=== PATIENT | female | born 1970 | race African-American/Black ===

== ENCOUNTER 2020-03-01 08:40 | Emergency (ER) | payer MEDICARE, OTHER ==
[2020-03-01 08:47] VITALS: PULSE 102; RESP 20
[2020-03-01] MEDS ORDERED: HYDROcodone/APAP 5-325MG 1 EACH TAB PO STA ×2 (09:18→10:58)
[2020-03-01] MEDS ORDERED: IBUPROFEN 600 MG TAB PO STA (09:18)
--- NOTE | 2020-03-01 09:43 | ED ---
General Adult HPI - General Chief complaint: Recheck/Abnormal Lab/Rx Stated complaint: hemorrhage Time Seen by Provider: 03/01/20 08:44 Source: EMS, RN notes reviewed, old records reviewed Mode of arrival: EMS Limitations: no limitations - History of Present Illness Initial comments: Patient is a 49-year-old female who presents emergency Department via EMS. She resides in [place], and states that she is able to do her own dialysis over her right arm graft. She is currently staying in [facility] with her daughter for the past few months. She reports that today when she attempted to access her fistuala a she started noticed severe bleeding and hemorrhage from her AV fistula. Patient reports that she has a vascular surgeon in [place]. She is here today via EMS. EMS noted a low-grade temperature of 99 and Patient has a fever of 100.1 in the emergency department. She does report a history of chronic smoker's cough. Patient states that she also is out of her chronic pain medication and plans of chronic back and hip pain. She states that she's been out of her [place] for one week. She reports that she has no exposure to cope with contacts. - Related Data Allergies Allergy/AdvReac Type Severity Reaction Status Date / Time iodine Allergy Cough Verified 03/01/20 08:48 Penicillins Allergy Rash/Hives Verified 03/01/20 08:47 Review of Systems ROS Statement: Those systems with pertinent positive or pertinent negative responses have been documented in the HPI. ROS Other: All systems not noted in ROS Statement are negative. 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 Alert and oriented. Limitations: no limitations General appearance: alert, in no apparent distress Head exam: Present: atraumatic, normocephalic, normal inspection Eye exam: Present: normal appearance, PERRL, EOMI. Absent: scleral icterus, conjunctival injection, periorbital swelling ENT exam: Present: normal exam, mucous membranes moist Neck exam: Present: normal inspection. Absent: tenderness, meningismus, lymphadenopathy Respiratory exam: Present: normal lung sounds bilaterally. Absent: respiratory distress, wheezes, rales, rhonchi, stridor Cardiovascular Exam: Present: regular rate, normal rhythm, normal heart sounds. Absent: systolic murmur, diastolic murmur, rubs, gallop, clicks GI/Abdominal exam: Present: soft, normal bowel sounds. Absent: distended, tenderness, guarding, rebound, rigid Extremities exam: Present: normal inspection, full ROM, normal capillary refill, other (Patient has evidence of open wound over her AV fistula. It is now clotted off, with no further bleeding. palpable cord distal to the wound. Patient reports pus came out of the site as well. ). Absent: tenderness, pedal edema, joint swelling, calf tenderness Back exam: Present: normal inspection Neurological exam: Present: alert, oriented X3, CN II-XII intact Psychiatric exam: Present: normal affect, normal mood Skin exam: Present: warm, dry, intact, normal color. Absent: rash Course Vital Signs 03/01/20 03/01/20 08:43 09:44 Temperature 101.1 F H 100.1 F H Pulse Rate 102 H 102 H Respiratory 20 20 Rate Blood Pressure 140/93 139/88 O2 Sat by Pulse 98 97 Oximetry Medical Decision Making - Medical Decision Making 49-year-old female on dialysis who max assist her fistula site of her right arm noticed it was bleeding today has an open wound. She also reported some pus from the wound. She rides emergency Department via EMS and is found to have a low-grade temperature 100.1. She also complained of a chronic smoker's cough. At this time Patient was quite aggravated that she is seen in the emergency department and she had a libertarian attempted to contact her surgeon in [place] for her fistula graft. Patient was informed that with the concern for "crisis a cough and fever here we would want to further testing and blood work. Her she is continuing to refuse this. Her fistula site has stopped bleeding at this time but does have an evidence of an open ulceration at the [place] flight. Patient called family and they will be picking her up and going to the office in [place]. Patient understands that she will be leaving AGAINST MEDICAL ADVICE as I do prefer to do further testing the low-grade fever and patient's complaint of ulceration and pus from her fistula site. Patient agrees to these risks and is willing to sign AGAINST MEDICAL ADVICE. Disposition Clinical Impression: Hemorrhage of arteriovenous fistula, Fever, Dialysis AV fistula malfunction Disposition: Left Against Medical Advice Condition: Stable Is patient prescribed a controlled substance at d/c from ED?: No Referrals: None,Stated [Primary Care Provider] - 1-2 days Time of Disposition: 09:51
[2020-03-01 09:55] VITALS: BP 139/88; TEMP 100.1
--- NOTE | 2020-03-01 10:36 | ED ---
General Adult HPI - General Chief complaint: Recheck/Abnormal Lab/Rx Stated complaint: hemorrhage Time Seen by Provider: 03/01/20 08:44 Source: EMS, RN notes reviewed, old records reviewed Mode of arrival: EMS Limitations: no limitations - History of Present Illness Initial comments: Patient is a 49-year-old female who presents emergency department for initial complaint of hemorrhage from AV fistula site and noted pus from this. Patient states that she does self dialyze from the site and did so 2 [id number]. She had a ulceration over the fistula site and clot over this at this time. She'll see him on some pus from the area. When she arrived to the emergency department initially she had a fever of 101. Patient was refusing to be evaluated for the fever and only wanted to see vascular surgery. Typically her vascular surgeon is in [place]. When she was initially in the emergency department she called her vascular surgeon and stated she wanted to leave AGAINST MEDICAL ADVICE, and go to their office and have no labs for the fever and was refusing Covid Swab. She agreed to leave AGAINST MEDICAL ADVICE and accepted these risks. When patient's daughter arrives to emergency Department her daughter became upset and stated that she should be seen in any emergency room for vascular complaint. I discussed with the Patient and patient's family that vascular surgeon is not waiting in the emergency room to see the patient at this time, but she needs further workup for the fever first. Are now agreeable to be evaluated for further workup in regards to the fever. - Related Data Home Medications Medication Instructions Recorded Confirmed B Complex W-C No.20/Folic Acid 1 mg PO DAILY 03/01/20 03/01/20 [Renal Caps Softgel] Biotin 1mg 1 tab PO DAILY 03/01/20 03/01/20 Calcitriol [Rocaltrol] 0.5 mcg PO DAILY 03/01/20 03/01/20 Cyanocobalamin (Vitamin B-12) 1,000 mcg PO DAILY 03/01/20 03/01/20 [Vitamin B-12] Docusate [Colace] 100 mg PO BID PRN 03/01/20 03/01/20 HYDROcodone/APAP 7.5-325MG [Ava 1 tab PO BID 03/01/20 03/01/20 7.5-325] Sevelamer HCl [Renagel] 1,600 mg PO QID 03/01/20 03/01/20 Allergies Allergy/AdvReac Type Severity Reaction Status Date / Time iodine Allergy Cough Verified 03/01/20 10:42 Penicillins Allergy Rash/Hives Verified 03/01/20 10:42 aspirin AdvReac Nausea & Verified 03/01/20 11:44 Vomiting Review of Systems ROS Statement: Those systems with pertinent positive or pertinent negative responses have been documented in the HPI. ROS Other: All systems not noted in ROS Statement are negative. 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 Irrate and uncooperative. Limitations: no limitations General appearance: alert, in no apparent distress Head exam: Present: atraumatic, normocephalic, normal inspection Eye exam: Present: normal appearance, PERRL, EOMI. Absent: scleral icterus, conjunctival injection, periorbital swelling ENT exam: Present: normal exam, mucous membranes moist Neck exam: Present: normal inspection. Absent: tenderness, meningismus, lymphadenopathy Respiratory exam: Present: decreased breath sounds. Absent: normal lung sounds bilaterally, respiratory distress, wheezes, rales, rhonchi, stridor Cardiovascular Exam: Present: regular rate, normal rhythm, normal heart sounds. Absent: systolic murmur, diastolic murmur, rubs, gallop, clicks GI/Abdominal exam: Present: soft, normal bowel sounds. Absent: distended, tenderness, guarding, rebound, rigid Extremities exam: Present: normal inspection, full ROM, normal capillary refill, other (patient has skin contusion over 2cm graft, no bleeding noted. Patient has no drainage. ). Absent: tenderness, pedal edema, joint swelling, calf tenderness Back exam: Present: normal inspection, full ROM Neurological exam: Present: alert, oriented X3, CN II-XII intact Psychiatric exam: Present: normal affect, normal mood Skin exam: Present: warm, dry, intact, normal color. Absent: rash Course Vital Signs 03/01/20 03/01/20 08:43 09:44 Temperature 101.1 F H 100.1 F H Pulse Rate 102 H 102 H Respiratory 20 20 Rate Blood Pressure 140/93 139/88 O2 Sat by Pulse 98 97 Oximetry - Reevaluation(s) Reevaluation #1: 03/01/20 12:46 Patient has been unccoperate with blood draw and with IV start. Called staff "Analiliavanessa Bitch" Reevaluation #2: 03/01/20 12:[address] Brennan whom was there to examine patient and patient refuses to stay in for admission. EKG Findings - EKG Comments: EKG Findings:: EKG performed at 1105 shows normal sinus rhythm abnormal EKG. Ventricular rate of 90 beats were minute. CA interval is 156 ms. QRS duration is 70 ms. QT QTc is 352/449 ms. Medical Decision Making - Medical Decision Making Patient's 49-year-old female presents emergency department today for bleeding AV fistula site. When she arrived to the bleeding is well-controlled and stopped at this time. Patient has hyper focused on the AV fistual official site demanding to see vascular surgeon right away. I discussed that with concern for fever Patient should have further evaluation and blood work completed. She did mention in passing that she's had a cough but relates is chronic. 1 view chest x-ray shows evidence of pneumonia. Patient was informed that she become increasingly irate and was refusing to stay in the hospital for admission for pneumonia with a consult to vascular surgery in regards to her AV fistula site wound. Patient's case was discussed with Dr. Brennan also went into the room to give discussed with the Patient to stay in the hospital with consults vascular surgery. Patient was in the room with her daughter and she continues to refuse to stay in the hospital this time and does not believe she has pneumonia and wants to only be treated for vascular wound. Patient became quite irate, yelling at staff and calling staff names. Patient will be leaving with her daug hter at this time in stable condition. I did discuss with the Patient though that we would like to admit for concern for abnormal labs, needing to see vascular surgeon and have dialysis. She understands the risk of and not having all the lab reports back at this time. Patient will be leaving AGAINST MEDICAL ADVICE accept these risks. - Lab Data Result diagrams: 03/01/20 11:35 03/01/20 11:35 Lab Results 03/01/20 03/01/2003/01/20 Range/Units 11:35 11:35 11:35 WBC 3.9 (3.8-10.6) k/uL RBC 2.64 L (3.80-5.40) m/uL Hgb 7.8 L (11.4-16.0) gm/dL Hct 24.7 L (34.0-46.0) % MCV 93.7 (80.0-100.0) fL MCH 29.4 (25.0-35.0) pg MCHC 31.4 (31.0-37.0) g/dL RDW 14.5 (11.5-15.5) % Plt Count 157 (150-450) k/uL Neutrophils % 78 % Lymphocytes % 12 % Monocytes % 7 % Eosinophils % 0 % Basophils % 0 % Neutrophils # 3.1 (1.3-7.7) k/uL Lymphocytes # 0.5 L (1.0-4.8) k/uL Monocytes # 0.3 (0-1.0) k/uL Eosinophils # 0.0 (0-0.7) k/uL Basophils # 0.0 (0-0.2) k/uL PT 9.9 (9.0-12.0) sec INR 0.9 (<1.2) APTT 29.1 (22.0-30.0) sec D-Dimer 1.85 H (<0.60) mg/L FEU Sodium 135 L (137-145) mmol/L Potassium 4.6 (3.5-5.1) mmol/L Chloride 97 L (98-107) mmol/L Carbon Dioxide 28 (22-30) mmol/L Anion Gap 10 mmol/L BUN 51 H (7-17) mg/dL Creatinine 10.28 H* (0.52-1.04) mg/dL Est GFR (CKD-EPI)AfAm 5 (>60 ml/min/1.73 sqM) Est GFR (CKD-EPI)NonAf 4 (>60 ml/min/1.73 sqM) Glucose 106 H (74-99) mg/dL Plasma Lactic Acid Aguila (0.7-2.0) mmol/L Calcium 8.0 L (8.4-10.2) mg/dL Magnesium 2.7 H (1.6-2.3) mg/dL Total Bilirubin 0.4 (0.2-1.3) mg/dL AST 33 (14-36) U/L ALT 27 (4-34) U/L Alkaline Phosphatase 75 (38-126) U/L Lactate Dehydrogenase 403 (313-618) U/L C-Reactive Protein 18.6 H (<10.0) mg/L Total Protein 7.2 (6.3-8.2) g/dL Albumin 3.9 (3.5-5.0) g/dL 03/01/20 Range/Units 11:35 WBC (3.8-10.6) k/uL RBC (3.80-5.40) m/uL Hgb (11.4-16.0) gm/dL Hct (34.0-46.0) % MCV (80.0-100.0) fL MCH (25.0-35.0) pg MCHC (31.0-37.0) g/dL RDW (11.5-15.5) % Plt Count (150-450) k/uL Neutrophils % % Lymphocytes % % Monocytes % % Eosinophils % % Basophils % % Neutrophils # (1.3-7.7) k/uL Lymphocytes # (1.0-4.8) k/uL Monocytes # (0-1.0) k/uL Eosinophils # (0-0.7) k/uL Basophils # (0-0.2) k/uL PT (9.0-12.0) sec INR (<1.2) APTT (22.0-30.0) sec D-Dimer (<0.60) mg/L FEU Sodium (137-145) mmol/L Potassium (3.5-5.1) mmol/L Chloride (98-107) mmol/L Carbon Dioxide (22-30) mmol/L Anion Gap mmol/L BUN (7-17) mg/dL Creatinine (0.52-1.04) mg/dL Est GFR (CKD-EPI)AfAm (>60 ml/min/1.73 sqM) Est GFR (CKD-EPI)NonAf (>60 ml/min/1.73 sqM) Glucose (74-99) mg/dL Plasma Lactic Acid Aguila 0.9 (0.7-2.0) mmol/L Calcium (8.4-10.2) mg/dL Magnesium (1.6-2.3) mg/dL Total Bilirubin (0.2-1.3) mg/dL AST (14-36) U/L ALT (4-34) U/L Alkaline Phosphatase (38-126) U/L Lactate Dehydrogenase (313-618) U/L C-Reactive Protein (<10.0) mg/L Total Protein (6.3-8.2) g/dL Albumin (3.5-5.0) g/dL - Radiology Data Radiology results: report reviewed Patchy perihilar and right basilar infiltrate. Correlating for pneumonia. Disposition Clinical Impression: Hemorrhage of arteriovenous fistula, Fever, Dialysis AV fistula malfunction Disposition: Left Against Medical Advice Condition: Stable Referrals: None,Stated [Primary Care Provider] - 1-2 days
--- NOTE | 2020-03-01 11:19 | XR ---
EXAMINATION TYPE: XR chest 1V DATE OF EXAM: 03/01/2020 HISTORY: Shortness of breath. COMPARISON: None. TECHNIQUE: Single view of the chest is submitted. FINDINGS: Demonstrated are scattered senescent parenchymal change. Patchy perihilar and right basilar infiltrate. Correlate for pneumonia. The heart is enlarged. Hilar and mediastinal structures are within normal limits. Degenerative changes are seen of the dorsal spine. IMPRESSION: 1. Patchy perihilar and right basilar infiltrate. Correlate for pneumonia.
[2020-03-01 11:51] LABS: Basophils % (A) 0 %; Eosinophils % (A) 0 %; HCT 24.7 % (34.0-46.0); HGB 7.8 gm/dL (11.4-16.0); Lymphocytes # (A) 0.5 k/uL (1.0-4.8); Lymphocytes % (A) 12 %; MCH 29.4 pg (25.0-35.0); MCHC 31.4 g/dL (31.0-37.0); MCV 93.7 fL (80.0-100.0); Mean Platelet Volume 8.7; Monocytes # (A) 0.3 k/uL (0-1.0); Monocytes % (A) 7 %; Neutrophils # (A) 3.1 k/uL (1.3-7.7); Neutrophils % (A) 78 %; Platelet Count 157 k/uL (150-450); RBC 2.64 m/uL (3.80-5.40); RDW 14.5 % (11.5-15.5); WBC 3.9 k/uL (3.8-10.6)
[2020-03-01] MEDS ORDERED: cefTRIAXone IN SWFI 1,000 MG/10 ML SYRINGE IVP STA (11:53)
[2020-03-01] MEDS ORDERED: AZITHROMYCIN 500 MG TAB PO STA (11:54)
[2020-03-01 12:02] LABS: INR 0.9 (<1.2); Partial Thromboplastin Time 29.1 sec (22.0-30.0); Prothrombin Time 9.9 sec (9.0-12.0)
[2020-03-01 12:13] LABS: Albumin 3.9 g/dL (3.5-5.0); C Reactive Protein 18.6 mg/L (<10.0); Magnesium 2.7 mg/dL (1.6-2.3); Potassium 4.6 mmol/L (3.5-5.1); Total Bilirubin 0.4 mg/dL (0.2-1.3); Total Protein 7.2 g/dL (6.3-8.2)
[2020-03-01 12:18] LABS: D-Dimer 1.85 mg/L FEU (<0.60)
== END 2020-03-01 12:33 | disposition left against medical advice (07) ==
LOC: EC 08:40
DX: Z03.818 Encounter for observation for suspected exposure to other biological agents ruled out (principal); T82.838A Hemorrhage due to vascular prosthetic devices, implants and grafts, initial encounter; R50.9 Fever, unspecified; N18.6 End stage renal disease; F17.200 Nicotine dependence, unspecified, uncomplicated; J41.0 Simple chronic bronchitis; Z99.2 Dependence on renal dialysis; Z79.899 Other long term (current) drug therapy; Z88.0 Allergy status to penicillin; Z91.048 Other nonmedicinal substance allergy status
CPT/HCPCS: 36415; 71045; 80053; 82728; 83605; 83615; 83735; 84145; 85025; 85379; 85610; 85730; 86140; 87040; 87635; 93005; 99285

== ENCOUNTER → 2021-09-19 | Outpatient (CLI) | payer MEDICARE, BC ==
[2021-09-19 14:39] LABS: INR 0.9 (<1.2); Partial Thromboplastin Time 29.2 sec (22.0-30.0); Prothrombin Time 10.2 sec (9.0-12.0)
[2021-09-19 17:56] LABS: Basophils # (A) 0.02 X 10*3/uL (0.00-0.10); Basophils % (A) 0.5 %; Eosinophils # (A) 0.13 X 10*3/uL (0.04-0.35); Eosinophils % (A) 3.4 %; HCT 28.4 % (37.2-46.3); HGB 8.6 g/dL (12.0-15.0); Lymphocytes # (A) 1.04 X 10*3/uL (0.90-5.00); Lymphocytes % (A) 27.4 %; MCH 31.6 pg (27.0-32.0); MCHC 30.3 g/dL (32.0-37.0); MCV 104.4 fL (80.0-97.0); Mean Platelet Volume 10.2 fL (9.5-12.2); Monocytes # (A) 0.33 X 10*3/uL (0.20-1.00); Monocytes % (A) 8.7 %; Neutrophils # (A) 2.27 X 10*3/uL (1.80-7.70); Neutrophils % (A) 59.7 %; Platelet Count 182 X 10*3/uL (140-440); RBC 2.72 X 10*6/uL (4.10-5.20); RDW 15.3 % (11.5-14.5)
[2021-09-19 20:39] LABS: GGT 10 U/L (0-38); LDH 226 U/L (120-246)
[2021-09-19 20:49] LABS: Hepatitis B Core IgM Nonreactive (Nonreactive); Hepatitis B Surface AB- Quant 4.2 mIU/mL; Hepatitis B Surface Antibody Nonreactive (Nonreactive); Hepatitis B Surface Antigen Nonreactive (Nonreactive); Hepatitis C IgG Antibody Nonreactive (Nonreactive)
[2021-09-19 21:03] LABS: HIV 2 AB Non-Reactive (Non-Reactive); HIV AB P24 Non-Reactive (Non-Reactive); HIV P24 AG Non-Reactive (Non-Reactive)
[2021-09-19 21:43] LABS: ALT 19 U/L (8-44); AST 24 U/L (13-35); African American GFR (CKD) 4.6 (60.0-200.0); Albumin 4.1 g/dL (3.8-4.9); Albumin/Globulin Ratio 1.27 (1.60-3.17); Alkaline Phosphatase 85 U/L (41-126); BUN/Creat Ratio 3.26 Ratio (12.00-20.00); Bilirubin, Conjugated <0.20 mg/dL (0.20-0.40); Blood Urea Nitrogen 32.3 mg/dL (9.0-27.0); Calcium 8.4 mg/dL (8.7-10.3); Carbon Dioxide 25.3 mmol/L (20.0-27.5); Chloride 99 mmol/L (96-109); Globulin 3.2 g/dL (1.6-3.3); Glucose 122 mg/dL (70-110); Potassium 4.9 mmol/L (3.5-5.5); Sodium 145 mmol/L (135-145); Total Protein 7.3 g/dL (6.2-8.2)
[2021-09-20 06:01] LABS: EBV - VCA (IgG) >750.0 U/mL (<18.0); EBV - VCA IgM 32.9 U/mL (<36.0)
== END | disposition home or self-care (01) ==
LOC: LABWHC1 12:44
PROVIDERS: ATTEND Surgery
DX: Z01.810 Encounter for preprocedural cardiovascular examination (principal); Z13.6 Encounter for screening for cardiovascular disorders; N18.4 Chronic kidney disease, stage 4 (severe); Z76.82 Awaiting organ transplant status
CPT/HCPCS: 36415; 80053; 82977; 83036; 83615; 85025; 85610; 85730; 86644; 86665; 86704; 86705; 86706; 86780; 86803; 86900; 86901; 87340; 87390; 87522; 93005

== ENCOUNTER → 2021-09-19 | Outpatient (CLI) | payer MEDICARE, BC ==
--- NOTE | 2021-09-19 17:50 | ECHOF ---
Referral Reason:Z01.810 preoperative cardiac evaluation MEASUREMENTS -------- HEIGHT: 147.3 cm WEIGHT: 47.2 kg BP: RVIDd: 3.2 cm (< 3.3) IVSd: 1.5 cm (0.6 - 1.1) LVIDd: 2.7 cm (3.9 - 5.3) LVPWd: 1.5 cm (0.6 - 1.1) IVSs: 1.8 cm LVIDs: 1.5 cm LVPWs: 1.2 cm LAESV Index (A-L): 28.72 ml/m Ao Diam: 3.8 cm (2.0 - 3.7) AV Cusp: 2.4 cm (1.5 - 2.6) MV EXCURSION: 16.396 mm (> 18.000) MV EF SLOPE: 62 mm/s (70 - 150) EPSS: 0.5 cm MV E Andrew: 1.16 m/s MV DecT: 225 ms MV A Andrew: 1.24 m/s MV E/A Ratio: 0.93 AR PHT: 485 ms RAP: 5.00 mmHg RVSP: 83.98 mmHg FINDINGS -------- Sinus rhythm. This was a technically adequate study. The left ventricular size is normal. There is moderate concentric left ventricular hypertrophy. O verall left ventricular systolic function is normal with, an EF between 55 - 60 %. The right ventricle is normal in size. Normal LA size by volume 22+/-6 ml/m2. The right atrial size is normal. Interatrial and interventricular septum intact. The aortic valve is trileaflet and appears structurally normal. There is mild aortic regurgitation. There is no evidence of aortic stenosis. Mild mitral regurgitation is present. Moderate to severe tricuspid regurgitation present. There is moderate to severe pulmonary hypertens ion. The right ventricular systolic pressure, as measured by Doppler, is 83.98mmHg. RVSP may be ove restimated, consider Rt heart Cath There is no pulmonic regurgitation present. The aortic root size is normal. IVC Not well visulized. There is no pericardial effusion. CONCLUSIONS -------- 1. The left ventricular size is normal. 2. There is moderate concentric left ventricular hypertrophy. 3. Overall left ventricular systolic function is normal with, an EF between 55 - 60 %. 4. There is mild aortic regurgitation. 5. Mild mitral regurgitation is present. 6. Moderate to severe tricuspid regurgitation present. 7. There is moderate to severe pulmonary hypertension. 8. The right ventricular systolic pressure, as measured by Doppler, is 83.98mmHg. Overestimated RVSP. Consider RT heart Cath, MEDICAL PRACTICE MANAGER: Eunice Gamez RDCS
== END | disposition home or self-care (01) ==
LOC: RADECHMAIN 11:40
PROVIDERS: ATTEND Surgery
DX: Z13.6 Encounter for screening for cardiovascular disorders (principal); Z01.810 Encounter for preprocedural cardiovascular examination; N18.4 Chronic kidney disease, stage 4 (severe); Z76.82 Awaiting organ transplant status
CPT/HCPCS: 93306

== ENCOUNTER → 2021-09-27 | Outpatient (CLI) | payer MEDICARE ==
--- NOTE | 2021-09-27 08:16 | MM ---
Reason for exam: screening (asymptomatic). History: Patient is postmenopausal. Family history of breast cancer in mother at age 40. Physical Findings: A clinical breast exam by your physician is recommended on an annual basis and results should be correlated with mammographic findings. MG 3D Screening Mammo W/Cad Bilateral CC and MLO view(s) were taken. No prior studies available for comparison. The breast tissue is extremely dense which could obscure a lesion on mammography. Findin mm architectural distortion in the upper outer quadrant, posterior position of the right breast. ASSESSMENT: Incomplete: need additional imaging evaluation, BI-RAD 0 RECOMMENDATION: Ultrasound of the right breast. (upper outer quadrant [facility] will attempt to contact patient to return for ultrasound.
== END | disposition home or self-care (01) ==
LOC: RADMAMWWP 07:39
PROVIDERS: ATTEND Obstetrics & Gynecology
DX: Z12.31 Encounter for screening mammogram for malignant neoplasm of breast (principal)
CPT/HCPCS: 77063; 77067

== ENCOUNTER → 2021-09-27 | Outpatient (CLI) | payer MEDICARE ==
--- NOTE | 2021-09-27 12:14 | P.PN ---
Progress Note - Text Progress Note Date: 09/27/21 The patient was scheduled to see me as a new patient for her well woman examination this morning. We were informed that she uses a walker for ambulation. She was scheduled to have a screening mammogram immediately before seeing me as a part of her well woman examination. Immediately after having the mammogram, she was taken to the emergency room for shortness of breath and I did not see her for a well woman visit. When she was seen for her mammogram, she was unable to ambulate and was in a wheelchair. I am not seeing patients for well woman exams when they are not able to transfer themselves to the examining table. There seems to have been a miscommunication regarding the patient's ability to ambulate and move herself to the examining table. Because of her mobility limitations she will not be seen here for her well woman examination and pelvic exam. I have been informed that the mammogram does require a follow-up due to findings on her screening mammogram. Even though I will not be seeing her for a well woman examination for the reasons described above, I will make sure that the appropriate follow-up on the screening mammogram that was done is completed, when she is able.
== END | disposition home or self-care (01) ==
LOC: WWCWWP 07:33
PROVIDERS: ATTEND Obstetrics & Gynecology
DX: Z53.9 Procedure and treatment not carried out, unspecified reason (principal)

== ENCOUNTER → 2021-09-29 | Outpatient (CLI) | payer MEDICARE, BC ==
[2021-09-29 12:29] VITALS: BP 131/82; PULSE 90; RESP 18; TEMP 98.5
--- NOTE | 2021-09-29 12:44 | P.GSHP ---
History of Present Illness H&P Date: 09/29/21 Chief Complaint: abnormal mammogram Tracie is a 51 year old female seen in consultation for Dr. Lopez who had a mammogram done on 09-27-21 which showed an architectural distortion in the upper outer quadrant posterior portion of the right breast. Ultrasound was recomme nded. Ultrasound revealed 2 areas of concern in the right breast with dilated proximal and ultrasound-guided core biopsy was recommended of 2 of these areas. Additionally it was felt that the patient should have mammogram following the ultrasound to determine whether the area of concern were biopsied and of the area of increased density was persistent than the stereo biopsy of this area was recommended. The patient states she has felt an area of concern in her right breast for approximately 5-6 years. It has not changed in size. She does not complain of any lumps masses or nodules of concern in the left breast. She did have some right nipple discharge approximately one year ago which has stopped. She is not complaining of any pain in her breast. Caffeine: coffee every day all day nicotine: 3 cigarettes/day chocolate: occasional Family history: Mother: breast cancer at 46; from this at 47 Hormonal history: Menarche: 12 M1, breast fed: yes, age at first : 20 menopause: 45 BCP: none hormones: none Surgical history: Fistulas and grafts for dialysis bilateral knee surgeries after trauma/fall hip pinning right Medical history: end stage renal disease; preeclampsia from second ( on transplant list) no strength in legs HTN Social History: Nicotine: 3 cigarettes per day Alcohol: none drugs: none - Constitutional Constitutional: Denies chills, Denies fever - EENT Eyes: denies blurred vision, denies pain Ears: deny: decreased hearing, tinnitus Ears, nose, mouth and throat: Denies headache, Denies sore throat - Breasts Breasts: bilateral: as per HPI - Cardiovascular Cardiovascular: Denies chest pain, Denies shortness of breath - Respiratory Respiratory: Reports cough - Gastrointestinal Gastrointestinal: Denies abdominal pain, Denies diarrhea, Denies nausea, Denies vomiting - Genitourinary (Female) Comment: on dialysis 3 times a week - Menstruation Menstruation: Reports postmenopausal - Musculoskeletal Musculoskeletal: Reports as per HPI - Integumentary Integumentary: Denies pruritus, Denies rash - Neurological Neurological: Reports weakness - Psychiatric Psychiatric: Denies anxiety, Denies depression - Endocrine Endocrine: Denies fatigue, Denies weight change - Hematologic/Lymphatic Comment: none - Allergic/Immunologic Allergic/Immunologic: Reports as per HPI Past Medical History Past Medical History: Hypertension Additional Past Medical History / Comment(s): Irene failure History of Any Multi-Drug Resistant Organisms: None Reported Past Surgical History: Orthopedic Surgery Past Psychological History: No Psychological Hx Reported Smoking Status: Current some day smoker Past Alcohol Use History: None Reported Past Drug Use History: None Reported Medications and Allergies Home Medications Medication Instructions Recorded Confirmed Type B Complex W-C No.20/Folic Acid 1 mg PO DAILY 03/01/20 09/29/21 History [Renal Caps Softgel] Biotin 1mg 1 tab PO DAILY 03/01/20 09/29/21 History Cyanocobalamin (Vitamin B-12) 1,000 mcg PO DAILY 03/01/20 09/29/21 History [Vitamin B-12] Docusate [Colace] 100 mg PO BID PRN 03/01/20 09/29/21 History HYDROcodone/APAP 7.5-325MG [[place] 1 tab PO BID 03/01/20 09/29/21 History 7.5-325] calcitrioL [Rocaltrol] 0.5 mcg PO DAILY 03/01/20 09/29/21 History sevelamer HCL [Renagel] 1,600 mg PO QID 03/01/20 09/29/21 History Allergies Allergy/AdvReac Type Severity Reaction Status Date / Time iodine Allergy Cough Verified 09/29/21 11:41 Penicillins Allergy Rash/Hives Verified 09/29/21 11:41 aspirin AdvReac Nausea & Verified 09/29/21 11:41 Vomiting Surgical - Exam Vital Signs Temp Pulse Resp BP Pulse Ox 98.5 F 90 18 131/82 96 09/29/21 11:42 09/29/21 11:42 09/29/21 11:42 09/29/21 11:42 09/29/21 11:42 BMI 24.8 - General no distress - Eyes normal ocular movement - ENT no hearing loss - Neck trachea midline - Respiratory normal respiratory effort, clear to auscultation - Cardiovascular Heart Sounds: normal: S1, S2 - Abdomen Abdomen: soft, non tender, no guarding, no rigid, no rebound - Integumentary normal turgor - Musculoskeletal in a wheel chair - Psychiatric oriented to time, oriented to person, oriented to place, speech is normal Breast Exam: BRA: 38C inspection: Dialysis catheter right chest wall, bilateral grade 3 ptosis Palpation: Right breast: Approximately 1-1/2 cm firm nodularity upper outer quadrant, no other dominant masses or nodules of concern Right axilla: No adenopathy of concern Left breast: Positional exam no dominant masses or nodules of concern, fibrocystic changes Left axilla: No adenopathy of concern Results Mammogram and ultrasound reviewed with Dr. Steward Assessment and Plan Assessment: Impression: 1. Palpable mass right breast upper outer quadrant 2. To lesions seen on ultrasound right breast for core biopsy 3. Mammogram abnormality right breast for biopsy most likely corresponds to palpable abnormality and one of the ultrasound lesions 4. End-stage renal disease patient is here for clearance prior to renal transplant Plan: 1. Ultrasound core biopsy 2 areas of concern right breast correlation to determine that these are the same as the palpable and mammographic abnormality 2. Patient to follow up after core biopsy CC: Dr. Choi
== END | disposition home or self-care (01) ==
LOC: WWCWWP 11:30
PROVIDERS: ATTEND Surgery
DX: Z53.9 Procedure and treatment not carried out, unspecified reason (principal)

== ENCOUNTER → 2021-09-29 | Outpatient (CLI) | payer MEDICARE, BC ==
--- NOTE | 2021-09-29 12:00 | US ---
EXAMINATION TYPE: US abdomen comp/pelvis limited DATE OF EXAM: 09/29/2021 COMPARISON: NONE CLINICAL HISTORY: Z76.82 Awaiting organ transplant status. On renal dialysis. EXAM MEASUREMENTS: Liver Length: 16.9 cm Gallbladder Wall: 0.2 cm CBD: 0.4 cm Spleen: 10.0 cm Right Kidney: 7.6 x 3.7 x 3.0 cm Estimated Extremely limited exam due to overlying bowel gas. Patient unable to turn on her side for better positioning. Pancreas: Obscured by bowel gas Liver: wnl Gallbladder: wnl, LLD images not taken CBD: wnl Spleen: wnl Right Kidney: Very limited visualization. Echogenic in appearance. Upper cystic lesion seen - 2.5 x 3.3 x 3.1 cm. Lower pole hypoechoic lesion= 2.6 x 2.6 x 2.1 cm Left Kidney: Not visualized. Could be atrophy and echogenic. Upper IVC: Limited visualization Abd Aorta: Obscured by overlying bowel gas Bladder: Obscured by bowel gas Bilateral Jets not Seen IMPRESSION: 1. Nonvisualization of the left kidney. 2. Echogenic right kidney. Correlate for medical renal disease. Hypoechoic right renal lesions may re flect cystic changes.
== END | disposition home or self-care (01) ==
LOC: RADUSWWP 10:40
PROVIDERS: ATTEND Surgery
DX: R92.8 Other abnormal and inconclusive findings on diagnostic imaging of breast (principal)
CPT/HCPCS: 76700; 76857

== ENCOUNTER → 2021-09-29 | Outpatient (CLI) | payer MEDICARE, BC ==
--- NOTE | 2021-09-29 11:53 | USB ---
Reason for exam: additional evaluation requested from abnormal screening. History: Patient is postmenopausal. Family history of breast cancer in mother at age 40. Physical Findings: Nurse Summary: 2cm movable nodule (nurse ana lilia). US Breast Workup Limited RT Technologist: Batsheva Haskins Right limited breast ultrasound including focal area of concern, retroareolar and axilla demonstrates a 0.6 x 0.4 x 0.3cm solid, vascular lesion and duct ectasia at 10 o'clock, a 0.8 x 1.1 x 0.7cm solid, vascular lesion and duct ectasia at 10 o'clock for which a biopsy is recommended, a 1.3 x 2.2 x 0.7cm spiculated, solid, vascular lesion at 11 o'clock for which a biopsy is recommended, a 0.5 x 0.7cm calcification and duct ectasia at 12 o'clock and duct ectasia at the nipple. These results were verbally communicated with the patient and result sheet given to the patient on 09/29/21. ASSESSMENT: Suspicious, BI-RAD 4 RECOMMENDATION: Ultrasound core biopsy of the right breast. 2 sites. Post biopsy mammogram correlation Called Dr. Lopez's office with mammographic findings and has scheduled an appointment for the patient for 09/29/21 at 11:[address] Woo. PRELIMINARY REPORT CALLED AND FAXED TO DR. WOO ON 09/29/21.
== END | disposition home or self-care (01) ==
LOC: RADUSWWP 10:01
PROVIDERS: ATTEND Obstetrics & Gynecology
DX: I73.89 Other specified peripheral vascular diseases (principal)